=== PATIENT | male | born 1965 ===

== ENCOUNTER 2020-09-04 07:32 | Outpatient (CLI) | payer BC ==
[2020-09-04 08:09] LABS: Blood Urea Nitrogen 20 mg/dL (9-20)
--- NOTE | 2020-09-04 09:01 | Cat Scan Report ---
CT ABDOMEN AND PELVIS WITHOUT AND WITH CONTRAST HISTORY: Obstructed hernia of anterior abdominal wall. COMPARISON: None TECHNIQUE: Routine abdominal and pelvic CT exam performed without and with IV contrast. All CT scans at this location are performed using CT dose reduction for ALARA by means of automated exposure contr ol. FINDINGS: CT ABDOMEN: Lung Bases: No significant abnormality. Liver: Decreased attenuation consistent with hepatic steatosis. Biliary: No significant abnormality. Spleen: No significant abnormality. Unenlarged. Pancreas: No significant abnormality. Adrenals: No significant abnormality. Kidneys: No significant abnormality. Lymphatics: No lymphadenopathy. Vasculature: No significant abnormality. Bowel/Peritoneum: No acute findings. There is a fat-containing umbilical hernia measuring about 1.5 c m in diameter. No additional hernia is seen. Normal appendix. CT PELVIC: : No significant abnormality. Lymphatics: No lymphadenopathy. Osseous Structures: No aggressive appearing osseous lesions. Additional Findings: None IMPRESSION: 1. Tiny fat-containing umbilical hernia. No additional ventral abdominal wall hernia. Signer Name: Anthony Velazquez MD Signed: 09/04/2020 8:56 AM Workstation Name: [id number]
== END 2020-09-04 07:33 | disposition home or self-care (01) ==
LOC: CT 07:32
PROVIDERS: ATTEND Nurse Practitioner Family
DX: K42.9 Umbilical hernia without obstruction or gangrene (principal); K46.0 Unspecified abdominal hernia with obstruction, without gangrene
CPT/HCPCS: 36415; 74178; 82565; 84520; Q9967